=== PATIENT | male | born 1985 | race Caucasian/White ===

== ENCOUNTER → 2018-03-24 18:48 | Outpatient (CLI) | payer OTHER, SELFPAY ==
--- NOTE | 2018-03-24 18:52 | DI.MRI.S_ITS ---
PROCEDURE: MR CERVICAL SPINE WO CON INDICATIONS: NECK PAIN TECHNIQUE: Noncontrast sagittal T1 spin echo and T2 fast spin echo, sagittal STIR, foraminal oblique sagittal T2 fast spin echo, and axial gradient echo or T2 fast spin echo through the cervical spine. COMPARISON: [facility] [place], CR, SPINE CERVICAL 2 OR 3VW, 02/22/2016, 16:26. [facility], MR, C-SPINE W&WO CONTRAST, 08/12/2016, 8:48. [facility], , CERVICAL SPINE INTERLAMINAR, 08/06/2017, 9:19. [facility], MR, C-SPINE WITHOUT CONTRAST, 11/30/2015, 15:25. FINDINGS: Image quality: Excellent. Alignment and Curvature: There is normal bony alignment. Bone Marrow: Marrow demonstrates normal overall signal. Spinal Cord: Visualized spinal cord has normal size and signal. No cerebellar tonsillar herniation. Paraspinous Soft Tissues: No paravertebral masses. Prevertebral soft tissues are normal in thickness. C2-C3: Normal appearance. C3-C4: Slight degenerative disc height reduction and desiccation. No significant disc bulge or foraminal stenosis. C4-C5: The degenerative disc disease at this level is moderate with a focal posterior midline disc protrusion, centered at and slightly to the left of midline, with distortion of the anterior cord at this level that is reduced from the comparison study in July of 2016. Effacement of the CSF from the anterior thecal sac is again noted, and the cord anteriorly is mildly distorted. Bilateral mild symmetric foraminal stenosis is present. There is potential for bilateral C5 nerve root impingement to a mild degree. C5-C6: Degenerative disc disease is moderate, and there is a chronic posterior transverse disc bulge again most prominent at and to the left of midline. This produce mild anterior midline and left cord distortion, and effacement of CSF from both the anterior and posterior thecal sac. The degree of cord impingement is slightly improved from the prior study in 2017. Mild symmetric foraminal stenosis. C6-C7: Normal appearance of the disc but there is mild facet and uncovertebral degeneration on the left with resultant mild left foraminal stenosis with potential for mild impingement on the course of the left C7 nerve root. C7-T1: Normal appearance. IMPRESSION: Significant degenerative disc disease remains at C4-5 and C5-6, but slightly improved from the comparison study in July of 2016. Moderate spinal stenosis is present at each of these 2 levels and there is also mild foraminal stenosis as discussed in detail by level in the body of the report above. Disc herniation is not found. Dictated by: Josué Iverson M.D. on 03/25/2018 at 14:20 Approved by: Josué Iverson M.D. on 03/25/2018 at 14:54
== END ==
PROVIDERS: PCP Anesthesiology; Visit Provider Orthopaedic Surgery
DX: M50.321 Other cervical disc degeneration at C4-C5 level (principal); M48.02 Spinal stenosis, cervical region
CPT/HCPCS: 72141

== ENCOUNTER 2018-04-22 07:18 | Day surgery (SDC) | payer OTHER, SELFPAY ==
--- NOTE | 2018-04-22 | PATH_ITS ---
[facility] Accession Number: [id number] . 01 Material submitted: . GE JUNCTION . 01 Clinical history: . ESOPHAGITIS . 02 Diagnosis: Gastroesophageal Junction, Biopsy: Squamocolumnar junctional mucosa with chronic inflammation and reactive epithelial changes. Negative for intestinal metaplasia by alcian blue stain. Negative for dysplasia and malignancy. MRV/04/24/2018 . 02 Electronically signed: . Jess Tolentino MD, Pathologist NPI- [id number] . 01 Gross description: . Received one formalin-filled container labeled with the patient's name and labeled GE junction. The specimen consists of a 0.2 cm portion of tissue. Entirely submitted in one cassette. ([facility][id number]) /[facility] . 02 Microscopic: . An alcian blue stain was performed to evaluate for intestinal metaplasia and is negative. The control stain showed appropriate reactivity. . 02 Pathologist provided ICD-10: K20.9 . 02 CPT . 365867, [id number] Performed at: 01 [facility] [address] [id number] MD Tk Child MD Phone: [phone] Performed at: 02 [facility] [address] [place], [place] [id number] MD Jess Tolentino MD Phone: [phone]
[2018-04-22] MEDS: SODIUM CHLORIDE 0.9% 1,000 ML 70 ML IV (07:44)
[2018-04-22 07:45] VITALS: BP 153/98; PULSE 88; RESP 16; TEMP 36.4; O2SAT 96; BMI 25.0
--- NOTE | 2018-04-22 08:12 | PM.HP.1 ---
History of Present Illness Date Patient Seen: 04/22/18 Chief complaint: [id number] Narrative: 32-year-old male with history of terminal ileitis who was recently seen at our office on April 15, [address] Rojas. Please refer to our office note from that day. He is here for further evaluation of his reflux symptoms. He takes pantoprazole once or twice daily Patient History Medical History Acid reflux (Acute) Chronic cough (Acute) Chronic diarrhea (Acute) Color blindness (Acute) Hemorrhoids (Acute) Migraines (Acute) Osteoid osteoma (Acute) Palpitations (Acute) Terminal ileitis (Acute) Surgical History History of cervical spinal surgery (Acute) History of colonoscopy (Acute ~09/10/17) Social History household members: spouse Family & Social History Social History: household members spouse Meds Home Medications Medication Instructions Recorded Confirmed Type amitriptyline 25 mg PO DAILY 04/21/18 04/21/18 History cyclobenzaprine 15 mg PO DAILY 04/21/18 04/22/18 History dicyclomine 20 mg PO Q6H 04/21/18 04/21/18 History lisinopril 20 mg PO DAILY 04/21/18 04/22/18 History metoprolol succinate 25 mg PO DAILY PRN 04/21/18 04/22/18 History pantoprazole [Protonix] 40 mg PO DAILY 04/21/18 04/22/18 History acetaminophen [Tylenol Extra 1,000 mg PO Q6H PRN 04/22/18 04/22/18 History Strength] Allergies Allergy/AdvReac Type Severity Reaction Status Date / Time No Known Drug Allergies Allergy Verified 04/22/18 08:00 Exam Vital Signs (past 8 hours): - 04/22/18 07:45 Temperature 97.6 F Pulse Rate 88 Respiratory Rate 16 Blood Pressure 153/98 H Pulse Oximetry 96 Oxygen Delivery Method Room Air Narrative Exam Narrative: General: Patient is well developed, not in apparent distress Cardiovascular: Regular rate and rhythm, no murmurs, rubs, or gallops; no evidence of edema; no palpable abdominal aortic aneurysm Gastrointestinal: Normoactive bowel sounds, soft, nontender, nondistended, no rebound tenderness, no hepatosplenomegaly, no evidence of hernia Assessment & Plan Assessment & Plan narrative: 32-year-old male with history of terminal ileitis as well as GERD with breakthrough symptoms on Protonix. He is here for an EGD further evaluation Regarding the procedure(s), the risks and potential complications, benefits, and alternatives (including not doing the procedure) were discussed with the patient. The risks include but are not limited to bleeding, splenic injury, infection, perforation which may require surgical intervention, missed lesions, and adverse reactions to sedative medicines. After a question and answer period, the patient agreed to proceed with the procedure(s) and gives informed consent.
--- NOTE | 2018-04-22 08:18 | PM.OP.ENDO ---
Operative Date/Time/Diagnoses Date of procedure: 04/22/18 Procedure Notes Procedure in detail: Surgeon: Fuad Shah MD Procedure: Esophagogastroduodenoscopy with biopsy Preoperative diagnosis: GERD with breakthrough symptoms on Protonix Postoperative diagnosis: LA grade a reflux esophagitis, small hiatal hernia Medications: Conscious sedation using 5 mg IV of Midazolam and 100 mcg IV of Fentanyl Preanesthesia Assessment An H and P was performed/updated and the Px?s ASA class is 2. The procedure was discussed in detail with the patient. The potential risks and complications including infection, bleeding, missed lesions, perforation, need for surgery in case of perforation, prolonged hospital stay, and were explained. A brief question and answer period was allotted and once all questions were answered, informed consent was obtained. The patient was brought back to the procedure room and placed on standard monitoring. The patient?s vital signs were monitored continuously throughout the entire procedure. Prior to starting, a timeout was performed to confirm the patient?s identity, allergies, medications, and procedure. Procedure in detail The patient was placed in left lateral decubitus position and a bite block was inserted. The tip of the upper endoscope was placed into the mouth and advanced without difficulty under direct visualization into the esophagus. Esophagus: There was note of LA grade A reflux esophagitis at the GE junction which was at 37 cm from the incisors Stomach: Small hiatal hernia otherwise normal mucosa Duodenum: Normal visualized duodenum up to the 2nd portion The patient tolerated the procedure well and will be brought back to the recovery area to be discharged once criteria are met. The total physician intraservice time was 6 min. Complications There were no complications and estimated blood loss was minimal. Recommendations: Resume previous diet Continue outPx medications Follow up pathology results Anti-reflux measures at all times Office follow up with Dr. Rojas at the next available appointment An emergency contact number was given to the patient for any complications related to the procedure
[2018-04-22 08:29] VITALS: BP 145/100; PULSE 99; RESP 11; TEMP 36.8; O2SAT 91
--- NOTE | 2018-04-22 08:29 | PM.DS.1 ---
History of Present Illness Chief complaint: [id number] Narrative: 32-year-old male with history of terminal ileitis who was recently seen at our office on April 15, [address] Rojas. Please refer to our office note from that day. He is here for further evaluation of his reflux symptoms. He takes pantoprazole once or twice daily Discharge Providers Discharge Date: 04/22/18 Primary care physician: Jose Armando Sutton Discharge provider: Fuad Shah MD Exam Vital Signs (past 8 hours): - 04/22/18 07:45 Temperature 97.6 F Pulse Rate 88 Respiratory Rate 16 Blood Pressure 153/98 H Pulse Oximetry 96 Oxygen Delivery Method Room Air Narrative Exam Narrative: General: Patient is well developed, not in apparent distress Cardiovascular: Regular rate and rhythm, no murmurs, rubs, or gallops; no evidence of edema; no palpable abdominal aortic aneurysm Gastrointestinal: Normoactive bowel sounds, soft, nontender, nondistended, no rebound tenderness, no hepatosplenomegaly, no evidence of hernia Discharge Plan Discharge Plan Patient Disposition: Home Discharge Med Rec/Prescriptions Prescriptions: Continued lisinopril 20 mg Tablet 20 mg PO DAILY RF: 0 amitriptyline 25 mg Tablet 25 mg PO DAILY RF: 0 dicyclomine 20 mg Tablet 20 mg PO Q6H RF: 0 pantoprazole [Protonix] 40 mg Tablet,Delayed Release (Dr/Ec) 40 mg PO DAILY RF: 0 metoprolol succinate 25 mg Tablet Extended Release 24 Hr 25 mg PO DAILY PRN (Reason: Palpitations) RF: 0 cyclobenzaprine 15 mg Capsule,Extended Release 24hr 15 mg PO DAILY RF: 0 acetaminophen [Tylenol Extra Strength] 500 mg Tablet 1,000 mg PO Q6H PRN (Reason: Pain) RF: 0 Follow up/Referrals: Jose Armando Sutton [Primary Care Provider] - Discharge Orders: Discharge (Order); Ordered 04/22/18 Ordered By: Fuad Shah Provider Discharge Instructions Diet: Diet as Tolerated Visit Report/Discharge Packet Stand Alone Forms: EGD Result: [facility] Discharge Data Primary Care Provider: Jose Armando Sutton Attending Provider: Fuad Shah
[2018-04-22] MEDS: MIDAZOLAM 5 MG/5 ML VIAL IV (08:30)
[2018-04-22] MEDS: fentaNYL 250 MCG/5 ML INJ IV (08:30)
[2018-04-22 08:34] VITALS: BP 140/101; PULSE 4; RESP 15; O2SAT 92
--- NOTE | 2018-04-22 08:37 | SUR.PHASEI ---
Pt arrived, arousable, BP high, Dr Shah aware. Instructed pt to take BP and keep log to show his PCP if continues to be high. Pt did say his PCP is aware.
[2018-04-22 08:39] VITALS: BP 141/100; PULSE 98; RESP 16; O2SAT 93
[2018-04-22 08:53] VITALS: BP 143/102; PULSE 90; RESP 14; TEMP 36.6; O2SAT 97
--- NOTE | 2018-04-22 08:59 | SUR.PHASEII ---
Stable, tolerated procedure well. No questions/concerns.
== END 2018-04-22 08:59 | disposition home or self-care (01) ==
PROVIDERS: PCP Anesthesiology; Visit Provider Internal Medicine Gastroenterology
PROC: 0DJ08ZZ Inspection of Upper Intestinal Tract, Via Natural or Artificial Opening Endoscopic (ICD-10-PCS; CPT 43235; principal; 2018-04-22 08:30)
DX: K21.0 Gastro-esophageal reflux disease with esophagitis (principal); R05 Cough; K50.00 Crohn's disease of small intestine without complications; K44.9 Diaphragmatic hernia without obstruction or gangrene; Z83.79 Family history of other diseases of the digestive system
CPT/HCPCS: 43239; 88305; 88313; J2250; J3010

== ENCOUNTER 2018-05-12 06:05 | Inpatient (IN) | payer OTHER, SELFPAY ==
[2018-05-04 08:52] VITALS: BMI 26.6
[2018-05-12] VITALS (28 sets, daily range): BP systolic 133–172; BP diastolic 72–116; PULSE 82–131; RESP 9–23; TEMP 36.3–37.9; O2SAT 93–97; BMI 25.4
[2018-05-12] MEDS: LACTATED RINGERS 1,000 ML 42 ML IV ×2 (07:13→09:44)
--- NOTE | 2018-05-12 07:28 | PM.PREOP ---
Pre-operative Note Interval Note History & Physical reviewed/Exam performed by Physician: Yes Changes to H&P: No
--- NOTE | 2018-05-12 07:37 | PM.OP.1 ---
Operative Date/Time/Diagnoses Date of procedure: 05/12/18 Time of procedure: 09:41 Pre-op diagnosis: Cervical disc herniation and stenosis Post-op diagnosis: same Procedure & Clinicians Procedure: C4-5 and C5-6 anterior diskectomy an artificial disc replacement use of microscope Same procedure as scheduled: Yes Indications: 32 year old male with intractable pain from cervical stenosis. They had failed conservative management and requested operative intervention. Risks and benefits of surgery were discussed and appropriate consents were obtained. Surgeon: Kulwant López Work Counselor: Elise Plasencia Anesthesia Type: General Operative Notes Findings: none Closure Type: primary Specimen(s): none sent Prosthetic devices, grafts, tissues, transplants, or devices: Roslyn Mobi-C Estimated Blood Loss (mL): 5 Blood products transfused: none Procedure in detail: Patient was brought to the operating room and intubated on the table. A time-out was performed. Preoperative antibiotics were given. The neck was prepped and draped in the standard sterile fashion. Using a skin fold, we made a 3 cm oblique incision on the left side. We used Bovie to go through the platysma and then did a standard anterolateral blunt dissection down to the precervical fascia. Fascia was nicked and elevated up. A marker was placed and x-ray was taken for localization. We then subperiosteally elevated up the longus colli muscles. Self-retaining retractors were placed. [place] pins were placed under x-ray guidance to be parallel to the endplates. We then brought in the microscope. A scalpel used to perform an annulotomy. We then used a combination of pituitaries and curettes and Kerrison to perform a complete anterior diskectomy at C45. We took down the PLL and used Kerrison to remove any posterior disc material and osteophytes. At the end we could from the nerve hook cephalad caudally and out the foramen and everything was opened. We distracted open with the parallel safety scientist. We then used the horseshoes for sizing. We then used the trials. We then inserted a 15 x 15 x 6mm size Mobi-C artificial disc replacement under fluoroscopic guidance for positioning. The traction was released and x-ray was checked again. We then moved the [place] pin and went down level of C5-6. Again complete diskectomy was performed. We took down the PLL and cleared out all posterior disc and osteophyte material. A nerve hook was placed out the foramen as well as into the canal and everything was opened. We trialed and then placed another 15 x 15 x 6mm artificial disc replacement. This was done with fluoroscopy. Once we confirmed correct positioning we compressed down across the [place] pins and removed all retractors. Final x-rays taken. The wound was irrigated. There was no bleeding. The carotid was beating nicely. The platysma was closed. The superficial was closed. The skin was closed. A sterile dressing was placed. They were then extubated and brought to recovery room with no complications. Complications: none Condition: stable Disposition: PACU Plan for aftercare: inpatient. up with PT
--- NOTE | 2018-05-12 07:42 | P.OP_ITS ---
Operative Date/Time/Diagnoses Date of procedure: 05/12/18 Time of procedure: 09:41 Pre-op diagnosis: Cervical disc herniation and stenosis Post-op diagnosis: same Procedure & Clinicians Procedure: C4-5 and C5-6 anterior diskectomy an artificial disc replacement use of microscope Same procedure as scheduled: Yes Indications: 32 year old male with intractable pain from cervical stenosis. They had failed conservative management and requested operative intervention. Risks and benefits of surgery were discussed and appropriate consents were obtained. Surgeon: Kulwant López Computer Tape Librarian: Elise Plasencia Anesthesia Type: General Operative Notes Findings: none Closure Type: primary Specimen(s): none sent Prosthetic devices, grafts, tissues, transplants, or devices: Roslyn Mobi-C Estimated Blood Loss (mL): 5 Blood products transfused: none Procedure in detail: Patient was brought to the operating room and intubated on the table. A time-out was performed. Preoperative antibiotics were given. The neck was prepped and draped in the standard sterile fashion. Using a skin fold, we made a 3 cm oblique incision on the left side. We used Bovie to go through the platysma and then did a standard anterolateral blunt dissection down to the precervical fascia. Fascia was nicked and elevated up. A marker was placed and x-ray was taken for localization. We then subperiosteally elevated up the longus colli muscles. Self-retaining retractors were placed. [place] pins were placed under x-ray guidance to be parallel to the endplates. We then brought in the microscope. A scalpel used to perform an annulotomy. We then used a combination of pituitaries and curettes and Kerrison to perform a complete anterior diskectomy at C45. We took down the PLL and used Kerrison to remove any posterior disc material and osteophytes. At the end we could from the nerve hook cephalad caudally and out the foramen and everything was opened. We distracted open with the parallel personal caregiver. We then used the horseshoes for sizing. We then used the trials. We then inserted a 15 x 15 x 6mm size Mobi-C artificial disc replacement under fluoroscopic guidance for positioning. The traction was released and x-ray was checked again. We then moved the [place] pin and went down level of C5-6. Again complete diskectomy was performed. We took down the PLL and cleared out all posterior disc and osteophyte material. A nerve hook was placed out the foramen as well as into the canal and everything was opened. We trialed and then placed another 15 x 15 x 6mm artificial disc replacement. This was done with fluoroscopy. Once we confirmed correct positioning we compressed down across the [place] pins and removed all retractors. Final x-rays taken. The wound was irrigated. There was no bleeding. The carotid was beating nicely. The platysma was closed. The superficial was closed. The skin was closed. A sterile dressing was placed. They were then extubated and brought to recovery room with no complications. Complications: none Condition: stable Disposition: PACU Plan for aftercare: inpatient. up with PT
--- NOTE | 2018-05-12 08:20 | SUR.OPER ---
Supine, head on gel donut. Arms padded with gel pads, tucked at sides, towel roll under shoulders. Safety belt at thigh. Legs uncrossed.
[2018-05-12] MEDS: CEFAZOLIN 2 GM/100 ML FROZ.PIGGY IV ×3 (08:36→23:57)
[2018-05-12] MEDS: BUPIVACAINE 0.25% W/ EPI 30 ML VIAL 60 ML INJ (08:36)
[2018-05-12] MEDS: THROMBIN (BOVINE) 5,000 UNIT VIAL 5000 UNIT TOP (08:40)
[2018-05-12] MEDS: SODIUM CHLORIDE 0.9% 1,000 ML, GENTAMICIN 80 MG IRR (08:40)
[2018-05-12] MEDS: THROMBIN (RECOMBINANT) 5,000 UNIT VIAL 5000 UNIT TOP (09:01)
--- NOTE | 2018-05-12 10:01 | DI.RAD.S_ITS ---
PROCEDURE: XR CERVICAL SPINE 2V OR 3V INDICATIONS: C4-5, C5-6 ,MOBI C TECHNIQUE: 2 view(s) of the cervical spine were acquired. COMPARISON: None. FINDINGS: Bones: Immediate postoperative examination with normal appearance after discectomy and intervertebral disc prosthesis placement at C4-5 and C5-6. Soft tissues: No prevertebral soft tissue swelling. IMPRESSION: Normal alignment established, anterior discectomy and interbody disc prosthesis placement at C4-5 and C5-6. Dictated by: Josué Iverson M.D. on 05/12/2018 at 10:24 Approved by: Josué Iverson M.D. on 05/12/2018 at 10:25
[2018-05-12] MEDS: HYDROMORPHONE 2 MG INJ 0.5 MG IV ×3 (10:34→11:12)
[2018-05-12] MEDS: LORazepam 2 MG/ML SYRINGE 0.25 MG IV ×2 (10:39→11:08)
[2018-05-12] MEDS: hydrOXYzine 50 MG/ML INJ 25 MG IM (10:43)
[2018-05-12] MEDS: LABETALOL 20 MG/4 ML SYRINGE 5 MG IV (11:49)
[2018-05-12] MEDS: LACTATED RINGERS 1,000 ML 125 ML IV (12:19)
--- NOTE | 2018-05-12 12:42 | SUR.PHASEI ---
patient stable. Vital signs with elevated BP as preop. HR 90-110's medicated with Labetolol per post op orders for HR >100. HR 90-100's. prior to transfer. Pain level 5/10. Bedside report given to Ana Riggins RN. at [facility].
[2018-05-12] MEDS: HYDROCODONE/ACET 5/325 TABLET 2 TAB PO ×2 (13:03→18:12)
--- NOTE | 2018-05-12 13:22 | PC.NURSE ---
Addendum entered by Karma Riggins R.N. 05/12/18 15:25: [id number] Willett cell phone concerning patients elevated heart rate. Original Note: Addendum entered by Karma Riggins R.N. 05/12/18 13:43: Pt reports pain to neck improved, HR 119, given 25mg metoprolol as ordered. Original Note: Pt alert oriented, rates pain to neck 5/10. Given two 5/325mg norco. Tolerated general diet without nausea.
[2018-05-12] MEDS: METOPROLOL ER 25 MG TABLET PO (13:41)
--- NOTE | 2018-05-12 14:31 | CM.DANOTE ---
DCP: Case received, EMR reviewed and met with patient. Introduced self and role. DCP template completed with information currently available. Patient is a 32 year old patient who admitted early this morning to the care of the surgical team. PCP: Dr. Keller at [facility]. Payer: confirmed: [facility] Patient came to hospital for surgical procedure. He had Anterior Diskectomy, due to his history of Cervical Stenosis. Met with patient and his in room. Patient alert and oriented. He mentioned that he has had disc problems for several years. 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 Patient is independent, and he is going to be working with physical therapy today. P: DCP will continue to follow. Patient should be able to return home when stable. Amena Kim RN/[employer]
[2018-05-12] MEDS: LISINOPRIL 10 MG TABLET PO (14:54)
[2018-05-12] MEDS: ACETAMINOPHEN 325 MG TABLET 650 MG PO (15:46)
--- NOTE | 2018-05-12 16:00 | P.PN_ITS ---
Subjective Date Patient Seen: 05/12/18 Time Patient Seen: 16:00 Interval history: He feels fine. Pain at the base of the neck. Arms are fine. Exam Vital Signs (past 8 hours): - 05/12/18 09:56 05/12/18 10:00 05/12/18 10:06 Temperature 97.3 F L Pulse Rate 83 82 82 Respiratory Rate 13 13 13 Blood Pressure 142/76 H 138/74 133/72 Pulse Oximetry 97 96 96 05/12/18 10:10 05/12/18 10:15 05/12/18 10:16 Temperature 98.4 F 98.4 F Pulse Rate 87 89 87 Respiratory Rate 15 14 17 Blood Pressure 142/77 H 142/77 H Pulse Oximetry 96 97 96 05/12/18 10:21 05/12/18 10:41 05/12/18 10:56 Temperature 97.8 F 97.7 F Pulse Rate 103 H 102 H 100 H Respiratory Rate 17 11 L 11 L Blood Pressure 172/72 H 154/105 H 167/116 H Pulse Oximetry 96 97 96 05/12/18 11:01 05/12/18 11:31 05/12/18 11:49 Temperature 98.5 F 98.2 F Pulse Rate 92 H 96 H 112 H Respiratory Rate 13 13 Blood Pressure 164/104 H 155/110 H 151/106 H Pulse Oximetry 95 95 05/12/18 11:51 05/12/18 11:53 05/12/18 12:00 Temperature 98.1 F 98.4 F Pulse Rate 110 H 107 H 101 H Respiratory Rate 9 L 15 Blood Pressure 161/104 H 161/104 H 163/107 H Pulse Oximetry 96 95 05/12/18 12:04 05/12/18 12:35 05/12/18 13:25 Temperature 98.9 F 100 F H Pulse Rate 117 H 129 H 129 H Respiratory Rate 14 16 16 Blood Pressure 164/113 H 156/74 H 143/79 H Pulse Oximetry 93 93 93 05/12/18 13:41 05/12/18 13:43 05/12/18 14:30 Temperature 100.2 F H Pulse Rate 119 H 119 H 130 H Respiratory Rate 16 Blood Pressure 143/79 H 143/73 H 154/83 H Pulse Oximetry 94 Oxygen Delivery Method Room Air Oxygen Flow Rate 2 Const Orientation: alert and oriented x3 Back/Spine/Pelvis Other: CDI. 5/5 motor both upper extremities. Assessment & Plan Post-op Postoperative Procedures Operation Date: 05/12/18 07:45 Actual Procedures Side Surgeon p C4-5,C5-6 Anterior Cervical Discectomy & Artificial Replacement Kulwant López MD he is feeling fine and wants to go home. He is having no difficulty swallowing. However, his heart rate is still elevated and he is running a low- grade temperature. I think his primary pulmonary. We will try him with a nebulizer treatment. If this resolves, I am fine with him going home tonight. Quality VTE Deep Vein Thrombosis/Pulmonary Embolism Present on Admission: No
--- NOTE | 2018-05-12 16:11 | PT.IIE ---
Current Diagnoses Other cervical disc displacement, unspecified cervical region (05/12/18) Strain of muscle, fascia and tendon at neck level, subsequent encounter (05/12/18) Other specified postprocedural states (05/12/18) Surgery Performed Operation Date: 05/12/18 07:45 Actual Procedures p C4-5,C5-6 Anterior Cervical Discectomy & Artificial Replacement - Kulwant López MD Surgical History (Last Updated 05/04/18 @ 09:16 by Natalya Ford RN) History of esophagogastroduodenoscopy (EGD) (Acute 04/22/18) History of cervical spinal surgery (Acute) History of colonoscopy (Acute ~09/10/17) Medical History (Last Updated 05/04/18 @ 09:16 by Natalya Ford RN) Anxiety (Acute) Elevated cholesterol (Acute) HTN (hypertension) (Acute) Numbness and tingling (Acute) Acid reflux (Acute) Chronic cough (Acute) Chronic diarrhea (Acute) Color blindness (Acute) Hemorrhoids (Acute) Migraines (Acute) Osteoid osteoma (Acute) Palpitations (Acute) Terminal ileitis (Acute) Physical Therapy Inpatient Evaluation/Re-Eval M1 PT/OT-IP Prior Functional Status Start: 05/12/18 15:27 Freq: NEEDED Status: Active Protocol: Document 05/12/18 15:00 AMB (Rec: 05/12/18 16:10 AMB [email or web address]) Medical Review Prior Functional Status Medical History Reviewed Yes Activities of Daily Living and IADL's 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 Driving and independent with all IADLs. Social History Household Members spouse Living Arrangements House Number of Floors (Floors) One Floor Number of Stairs To Enter/Railing? none Home Environment Standard Height Toilet Walk in Shower Tub/Shower Employment Status Active Duty M2 PT-IP Current Condition Start: 05/12/18 15:27 Freq: NEEDED Status: Active Protocol: Document 05/12/18 15:00 AMB (Rec: 05/12/18 16:10 AMB [email or web address]) Physical Therapy Current Condition Current Condition Evaluation Date 05/12/17 Treatment Diagnosis C4-5 and C5-6 anterior diskectomy and artificial disc replacement Onset Date 05/12/17 Precautions Cervical Spine Precautions Soft Collar for Comfort No Heavy Lifting Log Roll M3 PT-IP Subjective Start: 05/12/18 15:27 Freq: NEEDED Status: Active Protocol: Document 05/12/18 15:00 AMB (Rec: 05/12/18 16:10 AMB [email or web address]) Subjective Physical Therapy Visit Type Type Initial Evaluation Visit Start Time 14:45 Visit Stop Time 15:15 Total Visit Minutes 30 Physical Therapy Visit Comments Patient Comments Pt has been uncomfortable lying down, so he is standing as we enter the room. Denies dizziness, lightheadedness, is in the room with him. Therapy Pain Assessment Pain When Pain Assessed At Rest Pain Present Pain Present Pain Reported Location Posterior Neck Intensity 5 Scale Used Numeric (1 - 10) M4 PT-IP Mobility and Gait Start: 05/12/18 15:27 Freq: NEEDED Status: Active Protocol: Document 05/12/18 15:00 AMB (Rec: 05/12/18 16:10 AMB [email or web address]) PT-Bed Mobility Assessment Rolling Type of Rolling Log Rolling Level of Assist Standby Assistance Supine to Sit Supine to Sit Standby Assistance Sit to Supine Sit to Supine Standby Assistance Scooting Scooting to Edge of Bed Independent PT-Transfer Assessment Sit to and From Stand Sit to and from Stand Independent Equipment Transfer Assistive Device None Transfers Transfer Destination Bed Chair Transfer Technique Stand Step Pivot Transfer Ability Level of Assist Independent Comments Mobility Comments Pt transferring in room with prior to PT arriving, pt able to show good safety awareness, but needed cueing for safe log roll technique Gait Assessment Gait Gait Assistance Required: Standby Assistance Distance (Feet) 75 Assistive Devices Assistive Device None Gait Deviations General Gait Pattern Wide Based Gait Comments Gait Comments Pt's gait started slow and careful with wide base of support, which improved with time. Pt able to ambulate in hallway without assistive device. Stair Climbing Assessment Comments Stair Climbing Comments Pt does not have stairs at home, so deferred at this time . PT-Balance Assessment Sitting Balance and Reactions Static Sitting Balance Ability Normal Dynamic Sitting Balance Ability Normal Standing Balance and Reactions Static Standing Balance Ability Normal Dynamic Standing Balance Ability Normal Balance Tests Romberg 30 seconds Tandem Standing 30 seconds Comments Other Balance Tests/Deviations/Treatment eyes closed increased ankle : sway M5 PT-IP Objective Assessments Start: 05/12/18 15:27 Freq: NEEDED Status: Active Protocol: Document 05/12/18 15:00 AMB (Rec: 05/12/18 16:10 AMB [email or web address]) Orientation Orientation/Cognition Level of Alertness Alert Gross Range of Motion Upper Extremity ROM Assessment Within Functional Limits Lower Extremity ROM Assessment Within Functional Limits Strength Comments Strength Comments manual muscle testing deferred , Sensation Assessment Sensation Gross Sensation WNL Light Touch Intact M6 PT-IP Treatment Start: 05/12/18 15:27 Freq: NEEDED Status: Active Protocol: Document 05/12/18 15:00 AMB (Rec: 05/12/18 16:10 AMB [email or web address]) Physical Therapy Treatment Education Education Provided Precautions Post-Op Packet Safety M7 PT-IP Assessment and Plan Start: 05/12/18 15:27 Freq: NEEDED Status: Active Protocol: Document 05/12/18 15:00 AMB (Rec: 05/12/18 16:10 AMB [email or web address]) PT Summary Assessment and Plan Potential Rehabilitation Potential Excellent Status of Condition at Evaluation Stable Summary Impairments Pain ROM Assessment Summary Pradeep showed good safety awareness with transfers and gait. Needed verbal cues for correct body mechanics with log roll. Pain continues to limit comfort with extended positions. Pt showed good safety, and should be able to go home with his when he is medically stable. Goals Bed Mobility Goal Independent Transfer Goal Independent Gait Goal Independent Gait Distance 150 Frequency of Treatment Frequency Of Treatment Discharge Recommendations To Nursing Amount of Assist Needed Standby Assistance Discharge Recommendations PT Discharge Recommendations Home
[2018-05-12] MEDS: ALBUTEROL/IPRATROPIUM 3 ML AMPUL INH (17:28)
[2018-05-12] MEDS: SENNOSIDES 8.6 MG TABLET 17.2 MG PO (21:01)
[2018-05-12] MEDS: DOCUSATE 100 MG CAPSULE PO (21:01)
[2018-05-12] MEDS: AMITRIPTYLINE 25 MG TABLET PO (21:01)
[2018-05-12] MEDS: GABAPENTIN 300 MG CAPSULE PO (21:01)
[2018-05-12] MEDS: HYDROMORPHONE 0.5 MG INJ IV (21:07)
--- NOTE | 2018-05-12 21:21 | PC.NURSE ---
1500- assumed care of pt from outgoing shift. pt tachy at 120s. encouraged to rest and sit down. fluids order d/c per MD. extra 650 tylenol given per MD order. Pt tolerated. Pt does have pain to throat, states warm fluids help the most but prefers cold for his own personal reasons. pt drinking well. voiding fine. given neb treatment. felt that some stuff was broken up but hurts very bad to cough deeper to get rid of stuff. hr still 130s. oxygen low unless pt is deep breathing. encouraged even through the pain. given IVP prn per APR. Pt uses call light. up per self in room. reinforced precautions. 2029- international account executive provider paged about pt hr through the shift and pt's bp. no new orders at this time. will continue to monitor pt for safety.
[2018-05-13] VITALS: BP 150/85; PULSE 116; RESP 16; TEMP 37.3; O2SAT 95
[2018-05-13] MEDS: HYDROCODONE/ACET 5/325 TABLET 2 TAB PO ×3 (00:07→11:02)
[2018-05-13] MEDS: hydrOXYzine pamoate 25 MG CAPSULE PO ×2 (00:07→11:02)
--- NOTE | 2018-05-13 00:15 | PC.NURSE ---
Addendum entered by Cheryl Parham R.N. 05/13/18 06:06: Able to sleep for several hours. Both BP and HR improved this morning. States pain is 4/10 but requested 2 Vicodin; medicated as requested. Original Note: Addendum entered by Cheryl Parham R.N. 05/13/18 01:47: States pain has gotten worse rather than better after Vicodin/Vistaril combo with severity now at 7/10; medicated with IV Dilaudid. Original Note: Patient is alert and oriented. Breath sounds CTA with RA sat of 95%. BP remains elevated at 150/85 and HR tachy at 116. Denies nausea. BT present and is passing flatus. Denies dysuria, frequency or urgency but reports urine is dark so asked him to use urinal so staff can see urine color. Independent with mobility. Dressing to anterior neck is CDI. Wearing soft collar. Complains of 5/10 neck pain so medicated with Vicodin + Vistaril and ice pack provided. CMS intact. Refusing SCD's. Low fall risk. No swallowing problems noted.
[2018-05-13] MEDS: SODIUM CHLORIDE 0.9% FLUSH 10 ML IV (01:44)
[2018-05-13] MEDS: HYDROMORPHONE 0.5 MG INJ IV (01:44)
[2018-05-13 04:35] VITALS: BP 136/81; PULSE 92; RESP 16; TEMP 36.6; O2SAT 94
[2018-05-13] MEDS: PANTOPRAZOLE 40 MG TABLET PO (06:00)
[2018-05-13 08:00] VITALS: BP 149/84; PULSE 84; RESP 16; TEMP 36.8; O2SAT 97
--- NOTE | 2018-05-13 08:02 | PM.PNPO.1 ---
Subjective Date Patient Seen: 05/13/18 Time Patient Seen: 08:02 Interval history: He is doing well. He has some pain overnight but it was manageable. Exam Vital Signs (past 8 hours): - 05/13/18 04:35 Temperature 97.9 F Pulse Rate 92 H Respiratory Rate 16 Blood Pressure 136/81 Pulse Oximetry 94 Oxygen Delivery Method Room Air Oxygen Flow Rate 0 Const Orientation: alert and oriented x3 Back/Spine/Pelvis Other: CDI. 5/5 motor both upper extremities Assessment & Plan Post-op Postoperative Procedures Operation Date: 05/12/18 07:45 Actual Procedures Side Surgeon p C4-5,C5-6 Anterior Cervical Discectomy & Artificial Replacement Kulwant López MD he is doing well. His heart rate is back down to normal. Afebrile. Plan to discharge home today. Quality VTE Deep Vein Thrombosis/Pulmonary Embolism Present on Admission: No
[2018-05-13] MEDS: DOCUSATE 100 MG CAPSULE PO (09:12)
[2018-05-13] MEDS: NAPROXEN 250 MG TABLET 500 MG PO (09:12)
[2018-05-13] MEDS: LISINOPRIL 10 MG TABLET PO (09:13)
--- NOTE | 2018-05-13 09:48 | OT.IP.EVAL ---
Current Diagnoses Other cervical disc displacement, unspecified cervical region (05/12/18) Strain of muscle, fascia and tendon at neck level, subsequent encounter (05/12/18) Other specified postprocedural states (05/12/18) Surgery Performed Operation Date: 05/12/18 07:45 Actual Procedures p C4-5,C5-6 Anterior Cervical Discectomy & Artificial Replacement - Kulwant López MD Past Medical History (Last Updated 05/04/18 @ 09:16 by Natalya Ford RN) Anxiety (Acute) Elevated cholesterol (Acute) HTN (hypertension) (Acute) Numbness and tingling (Acute) Acid reflux (Acute) Chronic cough (Acute) Chronic diarrhea (Acute) Color blindness (Acute) Hemorrhoids (Acute) Migraines (Acute) Osteoid osteoma (Acute) Palpitations (Acute) Terminal ileitis (Acute) Surgical History (Last Updated 05/04/18 @ 09:16 by Natalya Ford RN) History of esophagogastroduodenoscopy (EGD) (Acute 04/22/18) History of cervical spinal surgery (Acute) History of colonoscopy (Acute ~09/10/17) Occupational Therapy Inpatient Evaluation/Re-Eval M1 PT/OT-IP Prior Functional Status Start: 05/12/18 15:27 Freq: NEEDED Status: Active Protocol: Document 05/12/18 15:00 AMB (Rec: 05/12/18 16:10 AMB [email or web address]) Medical Review Prior Functional Status Medical History Reviewed Yes Activities of Daily Living and IADL's 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 Driving and independent with all IADLs. Social History Household Members spouse Living Arrangements House Number of Floors (Floors) One Floor Number of Stairs To Enter/Railing? 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 Driving and independent with all IADLs. Social History Household Members spouse Living Arrangements House Number of Floors (Floors) One Floor Number of Stairs To Enter/Railing? none Home Environment Standard Height Toilet Walk in Shower Tub/Shower Employment Status Active Duty M2 OT-IP Current Condition Start: 05/13/18 09:38 Freq: Status: Active Protocol: Document 05/13/18 09:38 [facility] (Rec: 05/13/18 09:48 [facility] [email or web address]) Occupational Therapy Current Condition Current Condition Evaluation Date 05/13/18 Treatment Diagnosis C4-5, C5-6 ACD Diagnosis Onset Date 05/12/18 Post Operative Precautions Cervical Spine Precautions Soft Collar for Comfort No Heavy Lifting Log Roll M3 OT- IP Subjective and Pain Start: 05/13/18 09:38 Freq: Status: Active Protocol: Document 05/13/18 09:38 [facility] (Rec: 05/13/18 09:48 [facility] [email or web address]) OT- Subjective Occupational Therapy Visit Type Type Initial Evaluation Visit Start Time 09:00 Visit Stop Time 09:35 Total Visit Minutes 35 Occupational Therapy Visit Comments Patient Comments Pt feeling ready to go home. TUBING MACHINE OPERATOR present as per nursing pt had difficulty with swallowing pills yesterday. OT Pain Assessment Pain When Pain Assessed At Rest Pain Present Pain Present Denied Pain M4 OT- IP ADL's Start: 05/13/18 09:38 Freq: Status: Active Protocol: Document 05/13/18 09:38 [facility] (Rec: 05/13/18 09:48 [facility] [email or web address]) OT [id number] Comments OT Self-Feeding Comments Pt states yesterday tried to swallow pills without water as how he takes his pills before . Educated with TUBING MACHINE OPERATOR to make sure to drink water, take smaller bites and sips, and chew up his food thoroughly. SSLp suggested to drink cool liquids and OT suggested to ice his neck at times to also help with th swelling. OT ADL-Grooming General Evaluation Grooming Ability Independent OT ADL-Oral Care General Eval Oral Care Ability Independent, educated can either lean forwards or sip into a cup. OT ADL-Dressing General Eval Upper Body Dressing Ability Independent, good safety and able to sit down for LB dressing needs. OT ADL-Toileting General Evaluation Toileting Ability Independent OT ADL-Bathing Comments OT Bathing Comments Pt states to bath at home. M5 OT- IP IADL's Start: 05/13/18 09:38 Freq: Status: Active Protocol: Document 05/13/18 09:38 [facility] (Rec: 05/13/18 09:48 [facility] [email or web address]) OT-Instrumental Activities of Daily Living Home Safety Awareness Ability to Problem Solve Emergency Able to Problem Solve Situations Medication Management Medication Management No Deficits Identified Clay Preparation Supervisor Clay Preparation Supervisor Comments Pt aware no heavy lifting and to assist at home. M6 OT- IP Functional Cognition Start: 05/13/18 09:38 Freq: Status: Active Protocol: Document 05/13/18 09:38 [facility] (Rec: 05/13/18 09:48 [facility] [email or web address]) Cognitive Factors Limiting Selfcare Function Cognitive Ability Level of Alertness Alert Patient Orientation Name Age Birthday Month Date Year Day of Week Place Situation Attention Span Ability Capable of Focused Attention Capable of Sustained Attention Ability to Follow Commands Able to Follow Multi-Step Commands Memory Description No Deficits Noted Safety Awareness No Deficits Noted Problem Solving Ability No deficits Noted Executive Function Ability No Deficits Noted Cognitive Comments Cognitive Assessment Comments no deficits OT- Vision and Hearing OT- Hearing Assessment OT- Hearing Assessment WFL M7 OT- IP Mobility and Balance Start: 05/13/18 09:38 Freq: Status: Active Protocol: Document 05/13/18 09:38 [facility] (Rec: 05/13/18 09:48 [facility] [email or web address]) OT- Bed Mobility Assessment Rolling Type of Rolling Roll to Right Level of Assistance Independent Supine to Sit Supine to Sit Assist Independent OT-Transfer Assessment Sit to and From Stand Sit to and from Stand Independent Transfers Transfer Ability Independent Comments Mobility Comments BP 158/100, hr 100 nursing awares O2 on RA 95%. Pt states to either sleep on his bed or recliner. Reiterated that best to not have dogs slepp withi him for risk of infections. OT- Balance Assessment Sitting Balance and Reactions Static Sitting Balance Ability Normal Dynamic Sitting Balance Ability Normal Standing Balance and Reactions Static Standing Balance Ability Normal Dynamic Standing Balance Ability Good M8 OT- IP Objective Assessments Start: 05/13/18 09:38 Freq: Status: Active Protocol: Document 05/13/18 09:38 [facility] (Rec: 05/13/18 09:48 [facility] [email or web address]) OT Gross Range of Motion Upper Extremity Range of Motion Assessment Within Functional Limits OT Strength Upper Extremity Strength Assessment Within Functional Limits M9 OT- IP Assessment and Plan Start: 05/13/18 09:38 Freq: Status: Active Protocol: Document 05/13/18 09:38 [facility] (Rec: 05/13/18 09:48 [facility] [email or web address]) OT Summary Assessment and Plan Potential Rehabilitation Potential Excellent Analytic Complexity at Evaluation Low Summary Progress Towards Goals Safe For Discharge Assessment Summary Pt low complexity and doing well, pt to go home with today. Goals Patient/Caregiver Education Goal Demonstrate Post-Op Precautions Days to Meet Goals 1 Treatment Plan OT Treatment Plan Patient/Family Education Discharge Planning Discharge Recommendations OT Discharge Recommendations Home with Assistance
[2018-05-13] MEDS: METOPROLOL ER 25 MG TABLET PO (10:54)
[2018-05-13 12:19] VITALS: BP 154/101; PULSE 81; RESP 16; O2SAT 97
--- NOTE | 2018-05-13 14:23 | PC.NURSE ---
Discharge: Pt feels ready to d/c home. P/BP elevated this am 161/104, 100's to 120's. Dr. López orders - give his metoprolol and some pain medication. Waited a couple of hours. BP 154/[address] López contacted. May go home but is to cont metoprolol and see pcp - prefer this week. Appointment made with Dr. Velez and pt will be seen on Friday. Reviewed rest of d/c instructions and given rx. Questions answered. Did see ST[facility]OT/PT and received their d/c instructions. Pain in control and is able to tolerate diet. Family here at time of teaching. D/c home via auto w/family.
[2018-05-13 14:39] VITALS: BP 154/101; PULSE 84
== END 2018-05-13 14:00 | disposition home or self-care (01) | DRG 518 ==
PROVIDERS: Admitting Provider Orthopaedic Surgery; PCP Family Medicine; Visit Provider Orthopaedic Surgery
PROC: 0RR30JZ Replacement of Cervical Vertebral Disc with Synthetic Substitute, Open Approach (ICD-10-PCS; CPT 22856; principal; 2018-05-12 07:45)
DX: M50.20 Other cervical disc displacement, unspecified cervical region (principal); M96.1 Postlaminectomy syndrome, not elsewhere classified; I10 Essential (primary) hypertension; K21.9 Gastro-esophageal reflux disease without esophagitis; E78.1 Pure hyperglyceridemia; Z87.891 Personal history of nicotine dependence; M48.02 Spinal stenosis, cervical region; M50.221 Other cervical disc displacement at C4-C5 level; R50.9 Fever, unspecified
CPT/HCPCS: 72040; 76000; 94640; 94760; 94762; 97161; 97165; 97530; 97535; C1776; J0330; J0690; J1100; J1170; J2060; J2250; J2405; J2704; J3010; J3410

== ENCOUNTER → 2018-06-16 16:54 | Outpatient (CLI) | payer OTHER, SELFPAY ==
[2018-05-12 12:23] VITALS: BMI 25.4
--- NOTE | 2018-06-16 | DI.MRI.S_ITS ---
PROCEDURE: MR WRIST RT WO CON INDICATIONS: RIGHT WRIST PAIN TECHNIQUE: Noncontrast coronal proton density fast spin echo and T2 fast spin echo with fat saturation; coronal 3-D gradient echo, axial T1 spin echo and T2 fast spin echo with fat saturation, sagittal T1 spin echo through the wrist. COMPARISON: [facility], MR, MR WRIST LT WO CON, 06/16/2018, 17:09. FINDINGS: Image quality: Excellent. Bones and cartilage: The carpal bones are normally aligned. No bone marrow contusions or fractures. No evidence for avascular necrosis. Carpal ligaments: The scapholunate and lunotriquetral ligaments appear intact. In the absence of intra-articular contrast, the extrinsic carpal ligaments are not well identified. On sagittal images, the pisohamate ligament appears intact. Triangular fibrocartilage complex: The triangular fibrocartilage appears intact. The adjacent meniscal homolog appears normal in the absence of intra-articular contrast. The extensor carpi ulnaris tendon is normal in location and morphology. Tendons and soft tissues: The carpal tunnel structures appear normal, including the median nerve. The ulnar nerve appears normal within Guyon's canal. There is trace fluid adjacent to the extensor carpi radialis longus and brevis tendons, of unclear clinical significance given the very subtle MR appearance. No soft tissue ganglion cysts. Fluid is seen adjacent to the flexor pollicis longus tendon in keeping with tenosynovitis, the level of the first MCP joint. The actual tendon appears grossly intact. First MCP radial and ulnar collateral ligaments appear intact. Distal radial ulnar joint effusion. IMPRESSION: Flexor pollicis longus tenosynovitis primarily at the level of the first MCP joint. Trace fluid adjacent to the extensor carpi radialis longus and brevis tendons raising the possibility of additional tenosynovitis although, please correlate clinically given the very subtle appearance. No evidence of fracture. Distal radioulnar joint effusion. Dictated by: Kamar Serrato M.D. on 06/17/2018 at 8:35 Approved by: Kamar Serrato M.D. on 06/17/2018 at 8:43
--- NOTE | 2018-06-16 16:58 | DI.MRI.S_ITS ---
PROCEDURE: MR WRIST LT WO CON INDICATIONS: Left wrist and base of 1st metacarpal pain TECHNIQUE: Noncontrast coronal proton density fast spin echo and T2 fast spin echo with fat saturation; coronal 3-D gradient echo, axial T1 spin echo and T2 fast spin echo with fat saturation, sagittal T1 spin echo through the wrist. COMPARISON: None. FINDINGS: Image quality: Excellent. Bones and cartilage: The carpal bones are normally aligned. No bone marrow contusions or fractures. No evidence for avascular necrosis. First CMC and triscaphe joint degeneration , mild. Carpal ligaments: The scapholunate and lunotriquetral ligaments appear intact. In the absence of intra-articular contrast, the extrinsic carpal ligaments are not well identified. On sagittal images, the pisohamate ligament appears intact. Triangular fibrocartilage complex: The triangular fibrocartilage appears intact. The adjacent meniscal homolog appears normal in the absence of intra-articular contrast. The extensor carpi ulnaris tendon is normal in location and morphology. Tendons and soft tissues: The carpal tunnel structures appear normal, including the median nerve. The ulnar nerve appears normal within Guyon's canal. All six extensor tendon compartments demonstrate normal morphology, without pathologic tendon sheath fluid. No soft tissue ganglion cysts. There is minimal edema adjacent to the flexor pollicis longus tendon, at the level of the first MCP joint, with mild thickened appearance. The first MCP ulnar and radial collateral ligaments appear intact. IMPRESSION: Mild thickening and edema involving the flexor pollicis longus tendon at the level of the first MCP joint line raising the possibility of low-grade tendinopathy. Please correlate to point tenderness. Mild first CMC and triscaphe degeneration. No evidence of intrinsic ligament injury although further evaluation could be performed with dedicated MR arthrography as clinically necessary. No evidence of scaphoid fracture. Dictated by: Kamar Serrato M.D. on 06/17/2018 at 8:24 Approved by: Kamar Serrato M.D. on 06/17/2018 at 8:35
== END ==
PROVIDERS: PCP Family Medicine; Visit Provider Orthopaedic Surgery
DX: M25.531 Pain in right wrist (principal); M25.532 Pain in left wrist; M79.642 Pain in left hand; M18.12 Unilateral primary osteoarthritis of first carpometacarpal joint, left hand; M19.032 Primary osteoarthritis, left wrist; M65.841 Other synovitis and tenosynovitis, right hand; M25.431 Effusion, right wrist
CPT/HCPCS: 73221

== ENCOUNTER → 2018-10-16 08:30 | Outpatient (CLI) | payer OTHER, SELFPAY ==
[2018-05-12 12:23] VITALS: BMI 25.4
[2018-10-16 10:03] LABS: Estimated Glomerular Filt Rate > 60.0 mL/min (>60)
--- NOTE | 2019-02-01 13:55 | ONC.MSW ---
Description: New Referral Activity: Reviewed referral for urgency and acuity needs. Forwarded to scheduling for next routine new pt time with Dr. Hannah.
== END ==
PROVIDERS: PCP Family Medicine; Visit Provider Student in an Organized Health Care Education/Training Program
DX: K50.00 Crohn's disease of small intestine without complications (principal)
CPT/HCPCS: 36415; 82565

== ENCOUNTER → 2019-03-15 11:14 | Outpatient (CLI) | payer OTHER, SELFPAY ==
[2018-05-12 12:23] VITALS: BMI 25.4
--- NOTE | 2019-03-15 | DI.NM.S_ITS ---
PROCEDURE: NM BONE SPECT RADIOPHARMACEUTICAL: 20.5 mCi Tc-99m MDP IV. INDICATIONS: CERVICALGIA TECHNIQUE: Delayed bone scintigrams were obtained of the region of interest 3-4 hours after intravenous administration of Tc-99m MDP. Additional tomographic (SPECT) imaging was performed and displayed in axial, coronal, and sagittal planes. COMPARISON: [facility], CT, CT CERVICAL SPINE WITHOUT CONTRAST, 11/19/2018, 8:44. [facility], , CERVICAL SPINE INTERLAMINAR, 12/16/2018, 8:46. FINDINGS: There is increased isotope uptake at anterior aspect of cervical spine at C4-C6 levels consistent with postsurgical changes in this area. No other area of abnormal increased uptake is seen. IMPRESSION: Mildly increased isotope uptake along anterior aspect of C4-C6 vertebral bodies, consistent with CT finding of prior surgical fusion at these levels. No other area of abnormal increased isotope uptake is seen. Dictated by: Rom Jaime M.D. on 03/18/2019 at 10:16 Approved by: Rom Jaime M.D. on 03/18/2019 at 10:19
== END ==
PROVIDERS: Family Provider Family Medicine; PCP Family Medicine; Visit Provider Orthopaedic Surgery
DX: M54.2 Cervicalgia (principal); Z98.1 Arthrodesis status
CPT/HCPCS: 78305; A9503

== ENCOUNTER → 2021-02-28 06:39 | Outpatient (CLI) | payer OTHER, SELFPAY ==
[2018-05-12 12:23] VITALS: BMI 25.4
--- NOTE | 2021-02-28 | DI.MRI.S_ITS ---
PROCEDURE: MR CERVICAL SPINE WO CON INDICATIONS: CERVICALGIA TECHNIQUE: Noncontrast sagittal T1 spin echo and T2 fast spin echo, sagittal STIR, foraminal oblique sagittal T2 fast spin echo, and axial gradient echo or T2 fast spin echo through the cervical spine. COMPARISON: [facility] Outside Film, CT, CT CERVICAL SPINE WITHOUT CONTRAST, 11/19/2018, 8:44. [facility], CR, XR CERVICAL SPINE WITH FLEXION EXTENSION, 02/21/2021, 7:47. FINDINGS: Image quality: Limited secondary to susceptibility artifact related to C4-C5 and C5-C6 prosthetic disc metallic hardware. Alignment and Curvature: There is normal bony alignment. Bones: Postsurgical changes compatible with prior C4-C5 and C5-C6 prosthetic disc placement. Marrow demonstrates normal overall signal where well visualized.. Spinal Cord: Visualized spinal cord has normal size and signal. No cerebellar tonsillar herniation. Paraspinous Soft Tissues: No paravertebral masses. Prevertebral soft tissues are normal in thickness. C2-C3: Loss of disc signal. No central stenosis. No neural foraminal narrowing. No neural compression. C3-C4: Loss of disc signal. No central stenosis. No neural foraminal narrowing. No neural compression. C4-C5: Status post prosthetic disc placement. Mild bilateral facet hypertrophy. No central stenosis. Mild bilateral neural foraminal narrowing. No neural compression. C5-C6: Status post prosthetic disc placement. Mild bilateral facet hypertrophy. Central canal incompletely visualized due to artifact related to metallic prosthetic disc. Mild bilateral neural foraminal narrowing. No definite neural compression. C6-C7: Loss of disc signal. Minimal, diffuse disc bulge. No central stenosis. No neural foraminal narrowing. No neural compression. C7-T1: Normal appearance. IMPRESSION: 1. Status post C4-C5 and C5-C6 prosthetic disc placement. 2. Mild multilevel degenerative disc disease. 3. Mild multilevel facet arthropathy. 4. No definite severe central canal narrowing. Central canal is poorly visualized level of the C5-C6 disc prosthesis. 5. No severe neural foraminal narrowing. Dictated by: Melanie Howard MD, PhD on 02/28/2021 at 12:03 Approved by: Melanie Howard MD, PhD on 02/28/2021 at 12:11
== END ==
PROVIDERS: Family Provider Family Medicine; Referring Provider Physician Assistant Surgical; Visit Provider Physician Assistant Surgical
DX: M47.22 Other spondylosis with radiculopathy, cervical region (principal); R42 Dizziness and giddiness; Z98.890 Other specified postprocedural states; M50.10 Cervical disc disorder with radiculopathy, unspecified cervical region
CPT/HCPCS: 72141

== ENCOUNTER → 2021-03-16 06:42 | Outpatient (CLI) | payer OTHER, SELFPAY ==
[2018-05-12 12:23] VITALS: BMI 25.4
--- NOTE | 2021-03-16 | DI.MRI.S_ITS ---
PROCEDURE: MR SHOULDER RT WO/W CON INDICATIONS: PAIN IN RIGHT SHOULDER TECHNIQUE: Noncontrast oblique coronal T1 spin echo and T2 fast spin echo with fat saturation, oblique sagittal T1 spin echo and T2 fast spin echo with fat saturation, axial T1 spin echo and T2 fast spin echo with fat saturation through the shoulder. Post-contrast oblique coronal, oblique sagittal, and axial T1 spin echo with fat saturation through the shoulder. COMPARISON: None. FINDINGS: Image quality: Excellent. Rotator cuff: Tendinosis and low to moderate grade articular and bursal surface partial thickness tear involving distal supraspinatus at its insertion on the humeral head is seen extending to musculotendinous junction. Distal infraspinatus tendinosis is seen. Distal subscapularis tendon is intact. No full-thickness rotator cuff tendon rupture. Sagittal images demonstrate no significant muscle atrophy. Bones and bursae: No suspicious bone marrow enhancement. No bone marrow contusions or fractures. No acromioclavicular joint degeneration. [id number] acromioclavicular joint osteoarthritic changes are seen with downward osteophyte formation depressing the musculotendinous junction of supraspinatus. Small amount of subacromial subdeltoid bursal fluid is seen. Capsule and soft tissues: No suspicious soft tissue enhancement . There is signal abnormality and contour irregularity involving superior anterior labrum at 12 to 1 o'clock position. The long head of the biceps tendinosis is seen. The rotator interval appears normal, without fibrosis. The coracohumeral ligament is normal in thickness. IMPRESSION: 1. Tendinosis and low to moderate grade articular and bursal surface partial thickness tear involving distal supraspinatus at its insertion on humeral head extent musculotendinous junction. Distal infraspinatus tendinosis. No full-thickness rotator cuff tendon rupture. No muscle atrophy or abnormal intramuscular enhancement. 2. [id number] acromioclavicular joint osteoarthritis. No marrow edema. No fracture or dislocation. No suspicious intraosseous lesion or abnormal intraosseous enhancement. Small amount of subacromial subdeltoid bursal fluid. 3. There is suggestion of superior anterior labral tear at 12 to 1 o'clock position. 4. Proximal intra-articular portion of long head of biceps tendinosis. Dictated by: Rom Jaime M.D. on 03/16/2021 at 8:49 Approved by: Rom Jaime M.D. on 03/16/2021 at 8:53
== END ==
PROVIDERS: Family Provider Family Medicine
DX: M75.111 Incomplete rotator cuff tear or rupture of right shoulder, not specified as traumatic (principal); M19.011 Primary osteoarthritis, right shoulder; M25.511 Pain in right shoulder
CPT/HCPCS: 73223

== ENCOUNTER → 2022-04-25 13:17 | Outpatient (CLI) | payer OTHER, SELFPAY ==
[2022-01-09 14:00] VITALS: BMI 25.4
--- NOTE | 2022-04-25 | DI.RAD.S_ITS ---
PROCEDURE: XR THORACIC SPINE 2V INDICATIONS: PAIN TECHNIQUE: 2 views of the thoracic spine were acquired. COMPARISON: None. FINDINGS: Bones: No fractures or dislocations. No suspicious bony lesions. 12 pairs of ribs are noted, and appear intact where visualized. Soft tissues: No paravertebral stripe thickening. IMPRESSION: No acute abnormality. No significant degenerative disc disease. Dictated by: Jose Jones M.D. on 04/25/2022 at 16:44 Approved by: Jose Jones M.D. on 04/25/2022 at 16:44
--- NOTE | 2022-04-25 | DI.RAD.S_ITS ---
PROCEDURE: XR HAND LT 2V INDICATIONS: PAIN TECHNIQUE: 2 views of the hand(s) acquired. COMPARISON: None. FINDINGS: Bones: No fractures or dislocations. Carpal bones are normally aligned. No suspicious bony lesions. Soft tissues: No suspicious soft tissue calcifications. IMPRESSION: No acute fracture. No osseous lesion. If symptoms and/or clinical suspicion for pathology persist, further assessment with repeat, or advanced imaging (e.g., CT, MRI, or bone scan) may be helpful for further assessment. Dictated by: Junaid Ghosh M.D. on 04/25/2022 at 16:04 Transcribed by: TED on 04/25/2022 at 16:04 Approved by: Junaid Ghosh M.D. on 05/09/2022 at 13:43
--- NOTE | 2022-04-25 | DI.RAD.S_ITS ---
PROCEDURE: XR KNEE LT 3V INDICATIONS: PAIN TECHNIQUE: 3 views of the knee were acquired. COMPARISON: None. FINDINGS: Bones: No fractures or dislocations. No suspicious bony lesions. Soft tissues: No joint effusion. No suspicious soft tissue calcifications. IMPRESSION: No evidence acute bony abnormality of the left knee. If clinical suspicion and/or symptoms persist, further assessment with repeat plain films, or advanced imaging (e.g., CT, MRI, or bone scan) may be helpful for further assessment. Dictated by: Kushal Tapia M.D. on 04/25/2022 at 16:18 Approved by: Kushal Tapia M.D. on 04/25/2022 at 16:18
--- NOTE | 2022-04-25 | DI.RAD.S_ITS ---
PROCEDURE: XR PELVIS 1-2V INDICATIONS: PAIN TECHNIQUE: 1 view(s) of the pelvis acquired. COMPARISON: None. FINDINGS: Bones: No fractures or dislocations. No suspicious bony lesions. Soft tissues: Visualized bowel gas pattern is normal. No suspicious soft tissue calcifications. IMPRESSION: No acute bony abnormality. Dictated by: Jose Jones M.D. on 04/25/2022 at 16:46 Approved by: Jose Jones M.D. on 04/25/2022 at 16:46
--- NOTE | 2022-04-25 | DI.RAD.S_ITS ---
PROCEDURE: XR LUMBAR SPINE 2-3V INDICATIONS: PAIN TECHNIQUE: 3 views of the lumbar spine were acquired. COMPARISON: None. FINDINGS: Bones: 5 [id number] vertebrae are present. There is normal bony alignment. No vertebral body compression fractures. No suspicious bony lesions. Mild disc height loss at L4-5 and L5-S1 Soft tissues: Overlying bowel gas pattern is normal. No suspicious soft tissue calcifications. IMPRESSION: Mild disc height loss at L4-5 and L5-S1. Dictated by: Jose Jones M.D. on 04/25/2022 at 16:44 Approved by: Jose Jones M.D. on 04/25/2022 at 16:45
--- NOTE | 2022-04-25 | DI.RAD.S_ITS ---
PROCEDURE: XR SHOULDER RT MIN 2V INDICATIONS: PAIN TECHNIQUE: 3 views of the shoulder were acquired. COMPARISON: MR, MR SHOULDER RT WO/W CON, 03/16/2021, 7:19. FINDINGS: Bones: No fractures or dislocations. No suspicious bony lesions. Trace widening of AC joint. Mild acromioclavicular and glenohumeral joint degeneration. Visualized ribs appear intact. Soft tissues: No suspicious soft tissue calcifications. IMPRESSION: 1. Mild degenerative joint disease. 2. Borderline widening of AC joint. Please correlate with clinical history of AC sprain. Dictated by: Kobe Barrett M.D. on 04/26/2022 at 8:42 Approved by: Kobe Barrett M.D. on 04/26/2022 at 8:54
--- NOTE | 2022-04-25 | DI.RAD.S_ITS ---
PROCEDURE: XR SHOULDER LT MIN 2V INDICATIONS: PAIN TECHNIQUE: 3 views of the shoulder were acquired. COMPARISON: None. FINDINGS: Bones: No fractures or dislocations. No suspicious bony lesions. Visualized ribs appear intact. Soft tissues: No suspicious soft tissue calcifications. IMPRESSION: No acute osseous abnormalities. If clinical symptoms persist or there is clinical suspicion for internal derangement, MRI is suggested for further evaluation. Dictated by: Kobe Barrett M.D. on 04/26/2022 at 8:41 Approved by: Kobe Barrett M.D. on 04/26/2022 at 8:42
--- NOTE | 2022-04-25 | DI.RAD.S_ITS ---
PROCEDURE: XR FOOT LT 2V INDICATIONS: PAIN TECHNIQUE: 2 views of the foot were acquired. COMPARISON: None. FINDINGS: Bones: No acute fractures or dislocations. No suspicious bony lesions. A small a ossification is seen adjacent to the distal fibular tip that is most likely the sequela of remote prior trauma. Soft tissues: No suspicious soft tissue calcification. IMPRESSION: Small ossification adjacent to the fibular tip is likely the sequela of prior trauma. No acute osseous abnormality. If the symptoms persist, consider cross sectional imaging such as MRI or CT for further assessment. Approved by: Anton Montgomery M.D. on 04/25/2022 at 20:12
--- NOTE | 2022-04-25 | DI.RAD.S_ITS ---
PROCEDURE: XR KNEE RT 3V INDICATIONS: PAIN TECHNIQUE: 3 views of the knee were acquired. COMPARISON: None. FINDINGS: Bones: No fractures or dislocations. No suspicious bony lesions. Soft tissues: Trace knee joint effusion. joint effusion. No suspicious soft tissue calcifications. IMPRESSION: Trace joint effusion. No significant degenerative change. Dictated by: Kushal Tapia M.D. on 04/25/2022 at 16:19 Approved by: Kushal Tapia M.D. on 04/25/2022 at 16:20
--- NOTE | 2022-04-25 | DI.RAD.S_ITS ---
PROCEDURE: XR CERVICAL SPINE 2V OR 3V INDICATIONS: PAIN TECHNIQUE: 3 view(s) of the cervical spine were acquired. FINDINGS: Bones: No fractures or dislocations to the T1 level. The lateral masses of C1 appear intact on the odontoid view. No suspicious bony lesions. ACDF of C4-5 and C5-6, without hardware complication. Soft tissues: No prevertebral soft tissue swelling. IMPRESSION: ACDF of C4-5 and C5-6, without hardware complication. Dictated by: Jose Jones M.D. on 04/25/2022 at 16:46 Approved by: Jose Jones M.D. on 04/25/2022 at 16:47
--- NOTE | 2022-04-25 | DI.RAD.S_ITS ---
PROCEDURE: XR HAND RT 2V INDICATIONS: PAIN TECHNIQUE: 2 views of the hand(s) acquired. COMPARISON: None. FINDINGS: Bones: No fractures or dislocations. Carpal bones are normally aligned. No suspicious bony lesions. Soft tissues: No suspicious soft tissue calcifications. IMPRESSION: No acute fracture. No osseous lesion. If symptoms and/or clinical suspicion for pathology persist, further assessment with repeat, or advanced imaging (e.g., CT, MRI, or bone scan) may be helpful for further assessment. Dictated by: Junaid Ghosh M.D. on 04/25/2022 at 16:03 Transcribed by: TED on 04/25/2022 at 16:03 Approved by: Junaid Ghosh M.D. on 04/25/2022 at 16:38
--- NOTE | 2022-04-25 | DI.RAD.S_ITS ---
PROCEDURE: XR FOOT RT 2V INDICATIONS: PAIN TECHNIQUE: 2 views of the foot were acquired. COMPARISON: None. FINDINGS: Bones: No acute fractures or dislocations. No suspicious bony lesions. Mild flattening of the 2nd metatarsal head. Tiny plantar calcaneal enthesophyte. Soft tissues: No suspicious soft tissue calcification. IMPRESSION: No acute osseous abnormality. If the symptoms persist, consider cross sectional imaging such as MRI or CT for further assessment. Approved by: Anton Montgomery M.D. on 04/25/2022 at 20:14
== END ==
PROVIDERS: Family Provider Family Medicine; Referring Provider Chiropractor; Visit Provider Chiropractor
DX: M13.80 Other specified arthritis, unspecified site (principal); M19.011 Primary osteoarthritis, right shoulder; R06.00 Dyspnea, unspecified; R00.2 Palpitations; R52 Pain, unspecified; Z98.1 Arthrodesis status
CPT/HCPCS: 72040; 72070; 72100; 72170; 73030; 73120; 73562; 73620; 93005; 93306

== ENCOUNTER → 2022-04-25 13:42 | Outpatient (CLI) | payer OTHER, SELFPAY ==
[2022-01-09 14:00] VITALS: BMI 25.4
--- NOTE | 2022-04-25 | DI.ECHO.S_ITS ---
[place] [facility]---------+ [facility] +---------+ : : [address] : : : : [id number] : : : : Phone: [phone]+ Echocardiogram Report + + :Name: LA LAW Study Date: 04/25/2022 Height: 71 in : :[facility] ReadingLocation: Weight: 185 lb : : Gender: Male BSA: 2.0 m2 : :: 1985 Age: 36 yrs BP: 147/93 mmHg: :Reason For Study: DYSPNEA : :Ordering Physician: NATALIA, : :IVÁN Performed By: AISHA THORNTON : :Referring: IVÁN FISHER : + + Interpretation Summary The left ventricle is normal in size and wall thickness. The left ventricle is hyperdynamic. The ejection fraction is estimated to be 70-75%. There is no echo evidence for significant left ventricular outflow tract obstruction. Diastolic parameters suggest probable normal left ventricular diastolic function and normal filling pressures. The right ventricle is normal size. The right ventricular systolic function is normal. No significant valvular pathology seen. The IVC is of normal diameter and collapses greater than 50% with a sniff. This suggests a low right atrial pressure of 3 mm Hg. Procedure: A two-dimensional transthoracic echocardiogram with color flow and Doppler was performed. The study quality was technically adequate. There is no prior echocardiogram noted for this patient. The patient was in normal sinus rhythm during the exam. The heart rate ranged between 69-87 bpm during the study. Left Ventricle: The left ventricle is normal in size and wall thickness. There is no echo evidence for significant left ventricular outflow tract obstruction. There is no thrombus. The ejection fraction is estimated to be 70-75%. The left ventricle is hyperdynamic. There are no focal wall motion abnormalities. Diastolic parameters suggest probable normal left ventricular diastolic function and normal filling pressures. Right Ventricle: The right ventricle is normal size. The right ventricular systolic function is normal. Atria: The left atrial size is normal. The right atrium is mildly dilated. There is no Doppler evidence for an interatrial shunt. Mitral Valve: The mitral valve is normal in structure and function. There is no mitral regurgitation noted. Aortic Valve: The aortic valve is trileaflet. The aortic valve opens well. There is no aortic valve stenosis. No aortic regurgitation is present. Tricuspid Valve: The tricuspid valve is normal in structure and function. There is a trace or physiologic amount of tricuspid regurgitation. Pulmonary artery pressures cannot be estimated because of the lack of a measurable TR jet velocity. Pulmonic Valve: The pulmonic valve leaflets are thin and pliable; valve motion is normal. There is no pulmonic valvular regurgitation. Great Vessels: The aortic root is normal size. The ascending aorta is normal in size. The IVC is of normal diameter and collapses greater than 50% with a sniff. This suggests a low right atrial pressure of 3 mm Hg. Pericardium/ Pleura There is no pericardial effusion. There is no pleural effusion. MMode/2D Measurements & Calculations LVIDd: 4.2 cm LVOT diam: 2.0 cm LVIDs: 2.3 cm Ao root diam: 2.9 cm FS: 45.7 % asc Aorta Diam: 2.7 cm IVSd: 0.86 cm Ao Arch Diam (Prox Trans): 2.3 cm LVPWd: 0.81 cm LV cox. diameter/BSA (cm/m^2): 2.1 LV sys. diameter/BSA (cm/m^2): 1.1 LA A2 area: 11.9 cm2 RA long axis: 4.9 cm LA A4 area: 12.9 cm2 RA area: 13.0 cm2 LA length (vol): 3.9 cm RA vol: 29.7 ml LA vol: 33.3 ml RA : 14.5 ml/m2 LA vol index: 16.3 ml/m2 IVC diam: 1.0 cm TAPSE: 1.9 cm Doppler Measurements & Calculations Ao V2 max: 128.8 cm/sec LVOT Max Chris: 104.5 cm/sec Ao V2 mean: 91.8 cm/sec LV V1 max P.4 mmHg Ao max P.6 mmHg LV V1 VTI: 17.6 cm Ao mean P.7 mmHg SRAVAN(I,D): 2.4 cm2 Ao V2 VTI: 22.0 cm SRAVAN(V,D): 2.5 cm2 sev ratio: 0.80 SRAVAN indexed to BSA (cm^2/m^2): 1.2 MV E max chris: 62.9 cm/sec PA V2 max: 126.2 cm/sec MV A max chris: 63.1 cm/sec PA V2 mean: 83.5 cm/sec MV E/A: 1.00 PA mean P.2 mmHg Med Peak E' Chris: 7.1 cm/sec PA pr(Accel): 24.2 mmHg E/E' med: 8.9 Lat Peak E' Chris: 11.1 cm/sec E/E' lat: 5.6 E/e' average: 7.3 MV dec time: 0.23 sec SV([facility]): 53.1 ml Reading Physician:04:25 PM
== END ==
PROVIDERS: Family Provider Family Medicine; Referring Provider Chiropractor; Visit Provider Chiropractor
DX: R06.00 Dyspnea, unspecified (principal); R00.2 Palpitations; M13.80 Other specified arthritis, unspecified site
CPT/HCPCS: 93306

== ENCOUNTER → 2022-05-27 08:46 | Outpatient (CLI) | payer OTHER, SELFPAY ==
[2022-01-09 14:00] VITALS: BMI 25.4
--- NOTE | 2022-05-27 | DI.RAD.S_ITS ---
PROCEDURE: XR CHEST 2V INDICATIONS: arthritis TECHNIQUE: 2 views of the chest were acquired. COMPARISON: None. FINDINGS: Lungs and pleura: Lungs are clear. No pleural effusions or pneumothorax. Mediastinum: Mediastinal contours are normal. Heart size is normal. Bones and chest wall: No suspicious bony abnormalities. Soft tissues appear unremarkable. IMPRESSION: No acute cardiopulmonary abnormality. Dictated by: Anton Blackman M.D. on 05/27/2022 at 9:20 Approved by: Anton Blackman M.D. on 05/27/2022 at 9:24
== END ==
PROVIDERS: Family Provider Family Medicine; Referring Provider Chiropractor; Visit Provider Chiropractor
DX: M13.80 Other specified arthritis, unspecified site (principal)
CPT/HCPCS: 71046